=== PATIENT | male | born 1955 | race Caucasian/White ===

== ENCOUNTER 2016-09-24 15:40 | Emergency (ER) | payer MEDICARE, BC ==
[~2016-09-24] VITALS: Ht 175.3 cm; Wt 86.4 kg
[~2016-09-24 15:40] MED LIST: ASPIR-LOW81 MG PO; ATENOLOL25 MG PO; CALCIUM + D 6001 TAB PO; CELEBREX; DIAZEPAM5 MG PO; LIDODERM 5% PATC1 EA TP; LORTAB PO; LOW DOSE ASPIRI81 MG PO; MAREPA1200 MG PO; ONE DAILY1 TA1 PO; OSTEO-BI-FLEX 21 TAB PO; PRAVACHOL 20MG20 MG PO; PRILOSEC10 MG PO; SEROQUEL; TRAMADOL; ULTRAM50 MG PO; VALIUM 5MG T5 MG/TAB PO
[2016-09-24 15:42] VITALS: TEMP 98
[2016-09-24 16:24] LABS: BASO # 0.1 (0.0-0.2); BASO % 1.1 % (0.0-2.0); EOS # 0.2 (0.0-0.7); EOS % 2.8 % (0-4.0); GRAN # 3.8 (1.4-6.5); GRAN % 61.5 % (42.2-75.2); HEMATOCRIT 42.6 % (42.0-52.0); HEMOGLOBIN 15.4 g/dl (13.5-18.0); LYMPH # 1.7 (1.2-3.4); MEAN CELL VOLUME 88 fl (80.0-100.0); MEAN CORPUSCULAR HEMOGLOBIN 32 pg (27.0-31.0); MEAN CORPUSCULAR HGB CONC 36 g/dl (33.0-37.0); MEAN PLATELET VOLUME 10.6 fl (7.4-10.4); MONO # 0.4 (0.1-0.6); MONO % 6.4 % (1.7-9.3); PLATELET COUNT 238 K/mm3 (130-400); RED BLOOD COUNT 4.87 M/mm3 (4.20-5.60); WHITE BLOOD COUNT 6.1 K/mm3 (4.8-10.8)
[2016-09-24 16:38] LABS: ADJUSTED CALCIUM 9.1 mg/dL (8.4-10.2); ALANINE AMINOTRANSFERASE 34 U/L (21-72); ALBUMIN 4.1 gm/dL (3.5-5.0); ALKALINE PHOSPHATASE 59 U/L (50-136); ANION GAP 11 mmol/L (7-16); BLOOD UREA NITROGEN 10 mg/dL (9-20); CALCIUM 9.2 mg/dL (8.4-10.2); CARBON DIOXIDE 28 mmol/L (22-30); CHLORIDE 101 mmol/L (98-107); CREATININE, serum 0.97 mg/dL (0.66-1.25); GLUCOSE 93 mg/dL (74-106); POTASSIUM 3.8 mmol/L (3.4-5.0); SODIUM 140 mmol/L (137-145)
[2016-09-24 16:47] LABS: C-REACTIVE PROTEIN < 0.5 mg/dL (0.0-0.9)
[2016-09-24] MEDS ORDERED: PRINIVIL20 MG PO (17:41)
[2016-09-24 18:04] VITALS: BP 168/97; PULSE 49
== END 2016-09-24 18:06 | disposition home or self-care (01) ==
LOC: COL.ER 15:40
PROVIDERS: Emergency Medicine
DX: R51 Headache (principal); I10 Essential (primary) hypertension; F41.9 Anxiety disorder, unspecified
CPT/HCPCS: J2270; J2405; J7030

== ENCOUNTER 2019-01-05 15:15 | Outpatient (RCR) | payer MEDICARE, BC ==
[~2019-01-05 15:15] MED LIST changes: +PRINIVIL20 MG PO
== END 2019-01-18 | disposition home or self-care (01) ==
LOC: WSST
DX: R49.0 Dysphonia (principal)

== ENCOUNTER → 2022-09-05 | Outpatient (RCR) | payer MEDICARE, BC ==
[~2022-09-05] MED LIST changes: +CALCIUM CITRATE1 TA7 PO; +CELEXA 20MG20 MG/TAB PO; +K-DUR20 MEQ PO; +MERIBIN5 MG PO; +PROPECIA1 MG PO
== END | disposition home or self-care (01) ==
LOC: COL.CR
DX: Z95.1 Presence of aortocoronary bypass graft (principal); Z48.812 Encounter for surgical aftercare following surgery on the circulatory system

== ENCOUNTER 2022-10-03 15:45 | Outpatient (RCR) | payer MEDICARE, BC | END 2022-10-05 | disposition home or self-care (01) | LOC: COL.CR | DX: Z48.812 Encounter for surgical aftercare following surgery on the circulatory system (principal); Z95.1 Presence of aortocoronary bypass graft ==

== ENCOUNTER → 2022-11-05 | Outpatient (RCR) | payer MEDICARE, BC | END | disposition home or self-care (01) | LOC: COL.CR | DX: Z48.812 Encounter for surgical aftercare following surgery on the circulatory system (principal); Z95.1 Presence of aortocoronary bypass graft ==

== ENCOUNTER 2023-08-17 01:34 | Emergency (ER) | payer MEDICARE, BC ==
[~2023-08-17] VITALS: Ht 175.3 cm; Wt 90.5 kg
[~2023-08-17 01:34] MED LIST changes: -ATENOLOL25 MG PO; +CRESTOR20 MG PO; +FISH OIL 1000MG1 CAP PO; -MAREPA1200 MG PO; +NEURONTIN300 MG/CAP PO; -PRILOSEC10 MG PO; +PRILOTC; +PRINZIDE 12.5 M1 TA1 PO; +REQUIP 1MG T1 MG/TAB PO; +TENORMIN 5050 MG/TAB PO
[2023-08-17 01:42] VITALS: TEMP 98.5
[2023-08-17] MEDS ORDERED: amLODIPine 10 MG TAB PO ONE (02:15)
[2023-08-17 02:25] LABS: BASO # 0.1 K/mm3 (0.0-0.2); EOS # 0.3 K/mm3 (0.0-0.7); EOS % 3.5 % (0.0-4.0); GRAN # 7.3 K/mm3 (1.4-6.5); GRAN % 74.9 % (42.2-75.2); HEMATOCRIT 42.1 % (42.0-52.0); HEMOGLOBIN 14.6 g/dl (13.5-18.0); LYMPH # 1.1 K/mm3 (1.2-3.4); LYMPH % 11.5 % (20.0-51.0); MEAN CELL VOLUME 93 fl (80.0-100.0); MEAN CORPUSCULAR HEMOGLOBIN 32 pg (27-31); MEAN CORPUSCULAR HGB CONC 35 g/dl (33.0-37.0); MONO # 0.9 K/mm3 (0.1-0.6); MONO % 8.9 % (1.7-9.3); PLATELET COUNT 214 K/mm3 (130-400); RED BLOOD COUNT 4.53 M/mm3 (4.20-5.60); REDCELL DISTRIBUTION WIDTH-CV 12.2 % (11.5-14.5)
[2023-08-17 02:41] LABS: ALANINE AMINOTRANSFERASE 13 U/L (0-55); ALBUMIN 3.7 gm/dL (3.4-4.8); ALKALINE PHOSPHATASE 61 U/L (40-150); ANION GAP 8 mmol/L (7-16); AST,SGOT 19 U/L (5-34); BILIRUBIN,TOTAL 0.6 mg/dL (0.2-1.2); BLOOD UREA NITROGEN 15 mg/dL (8-26); C-REACTIVE PROTEIN 0.37 mg/dL (0.00-0.50); CALCIUM 9.5 mg/dL (8.4-10.2); CARBON DIOXIDE 27 mmol/L (23-31); CHLORIDE 103 mmol/L (98-107); GLUCOSE 98 mg/dL (70-99); POTASSIUM 4.4 mmol/L (3.5-4.5); SODIUM 138 mmol/L (136-145)
[2023-08-17 02:50] LABS: TROPONIN-I < 0.010 ng/mL (0.00-0.033)
[2023-08-17] MEDS ORDERED: NS 500 ML IV ONE (03:00)
[2023-08-17] MEDS ORDERED: Iohexol 300 - 100 ML VIAL IV ONE (03:14)
[2023-08-17] MEDS ORDERED: NS 50 ML IV ONE (03:15)
[2023-08-17] MEDS ORDERED: Albuterol 90 MCG/PUFF 8 GM MDI IH ONE (05:30)
[2023-08-17] MEDS ORDERED: NORVASC 10MG10 MG PO (05:48)
[2023-08-17 05:51] VITALS: BP 170/87; PULSE 66
== END 2023-08-17 06:00 | disposition home or self-care (01) ==
LOC: COL.ER 01:34
PROVIDERS: Emergency Medicine
DX: U07.1 COVID-19 (principal); I10 Essential (primary) hypertension; R05.9 Cough, unspecified; R09.81 Nasal congestion; R06.02 Shortness of breath; Z95.1 Presence of aortocoronary bypass graft
CPT/HCPCS: J7040; Q9967